=== PATIENT | female | born 1995 | race African-American/Black ===

== ENCOUNTER 2022-11-09 14:28 | Emergency (ER) | payer OTHER, MEDICAID ==
[~2022-11-09] VITALS: Ht 180.3 cm; Wt 108.0 kg
[2022-11-09 14:35] VITALS: BP_SYST 124; PULSE 94; RESP 20; TEMP 98; O2SAT 97
== END 2022-11-09 16:42 | disposition left against medical advice (07) ==
LOC: SED 14:28
DX: M79.601 Pain in right arm (principal); M79.602 Pain in left arm; M79.661 Pain in right lower leg; M79.662 Pain in left lower leg; Z53.21 Procedure and treatment not carried out due to patient leaving prior to being seen by health care provider
CPT/HCPCS: 99281

== ENCOUNTER 2023-03-12 20:52 | Emergency (ER) | payer OTHER, MEDICAID ==
[~2023-03-12] VITALS: Ht 180.3 cm; Wt 102.1 kg
[2023-03-12 21:14] VITALS: BP_SYST 148; PULSE 84; RESP 16; TEMP 98.3; O2SAT 99
[2023-03-12] MEDS ORDERED: CYCLOBENZAPRINE HCL 10 MG TABLET (FLEXERIL) PO ONE (22:45)
[2023-03-12] MEDS ORDERED: KETOROLAC TROMETHAMINE 60 MG/2 ML VIAL IM ONE (22:45)
[2023-03-12 23:15] VITALS: BP_SYST 136; PULSE 82; RESP 18; O2SAT 97
== END 2023-03-12 23:33 | disposition home or self-care (01) ==
LOC: SED 20:52
DX: M79.7 Fibromyalgia (principal); Z88.5 Allergy status to narcotic agent; Z88.6 Allergy status to analgesic agent; Z88.8 Allergy status to other drugs, medicaments and biological substances; Z79.899 Other long term (current) drug therapy
CPT/HCPCS: 99283; 96372; J1885

== ENCOUNTER 2023-09-14 13:40 | Emergency (ER) | payer OTHER, MEDICAID ==
[~2023-09-14] VITALS: Ht 180.3 cm; Wt 104.3 kg
[2023-09-14 13:45] VITALS: BP_SYST 124; PULSE 82; RESP 18; TEMP 97.2; O2SAT 99
[2023-09-14 15:34] LABS: BILIRUBIN,URINE NEGATIVE (NEGATIVE); BLOOD, URINE NEGATIVE (NEGATIVE); CLARITY/URINE CLEAR (CLEAR); COLOR,URINE YELLOW (YELLOW); GLUCOSE,URINE 3+ (NEGATIVE); KETONES,URINE NEGATIVE (NEGATIVE); LEUKOCYTE ESTERASE ,URINE NEGATIVE (NEGATIVE); NITRITE, URINE NEGATIVE (NEGATIVE); PROTEIN URINE NEGATIVE (NEGATIVE); UROBILINOGEN,URINE 0.2 (0.2-1.0)
[2023-09-14] MEDS: KETOROLAC TROMETHAMINE 60 MG/2 ML VIAL IM ONE (15:51)
== END 2023-09-14 16:41 | disposition home or self-care (01) ==
LOC: SED 13:40
DX: R07.89 Other chest pain (principal); R53.1 Weakness; M79.7 Fibromyalgia; Z88.6 Allergy status to analgesic agent; Z88.5 Allergy status to narcotic agent; Z88.8 Allergy status to other drugs, medicaments and biological substances
CPT/HCPCS: 99285; 71045; 81001; 93005; 81025; 96372; J1885; 81003